=== PATIENT | male | born 1990 | race Caucasian/White ===

== ENCOUNTER 2018-07-03 13:40 | Emergency (ER) | payer MEDICAID, OTHER ==
[2018-07-03 13:51] VITALS: BP 119/76; PULSE 72; RESP 18; TEMP 98.4; O2SAT 97
--- NOTE | 2018-07-03 14:22 | C.PDOC ---
History Of Present Illness 28 y/o male presents to the ED for evaluation of back s/p accidental slip and fall. Patient states he fell and landed on his mid lower back. No LOC or head trauma. Now complaining of pain to that area. Denies hx of chronic back pain. Denies any new numbness or weakness. Time Seen by Provider: 07/03/18 14:11 Chief Complaint (Nursing): Back Pain History Per: Patient History/Exam Limitations: no limitations Onset/Duration Of Symptoms: Hrs Current Symptoms Are (Timing): Still Present Previous Symptoms: None Past Medical History Reviewed: Historical Data, Nursing Documentation, Vital Signs Vital Signs: Last Vital Signs Temp 98.4 F 07/03/18 13:48 Pulse 72 07/03/18 13:48 Resp 18 07/03/18 13:48 BP 119/76 07/03/18 13:48 Pulse Ox 97 07/03/18 13:48 - Medical History PMH: No Chronic Diseases Surgical History: No Surg Hx Family History: States: Unknown Family Hx - Social History Hx Tobacco Use: Yes Hx Alcohol Use: No Hx Substance Use: No - Immunization History Hx Tetanus Toxoid Vaccination: Yes Hx Influenza Vaccination: No Hx Pneumococcal Vaccination: No Review Of Systems Except As Marked, All Systems Reviewed And Found Negative. Constitutional: Negative for: Fever Cardiovascular: Negative for: Chest Pain Respiratory: Negative for: Shortness of Breath Gastrointestinal: Negative for: Nausea, Vomiting Musculoskeletal: Positive for: Back Pain Skin: Negative for: Lesions Neurological: Negative for: Weakness, Numbness Physical Exam - Physical Exam Appears: Well, Non-toxic, No Acute Distress Skin: Normal Color, Warm, Dry Head: Atraumatic, Normacephalic Eye(s): bilateral: Normal Inspection, PERRL, EOMI Oral Mucosa: Moist Neck: Normal ROM Chest: Symmetrical Cardiovascular: Rhythm Regular, No Murmur Respiratory: Normal Breath Sounds, No Accessory Muscle Use, Other (NARD) Gastrointestinal/Abdominal: Soft, No Tenderness, No Distention Back: No Vertebral Tenderness, Paraspinal Tenderness (right paravertebral tenderness around T12 and L1), Other (Skin intact) Extremity: Bilateral: Atraumatic, Normal Color And Temperature Neurological/Psych: Oriented x3, Normal Speech, Other (Neurologically intact,no focal deficits) Gait: Steady ED Course And Treatment O2 Sat by Pulse Oximetry: 97 (RA) Pulse Ox Interpretation: Normal - Other Rad LS SPINE X-Ray: Interpreted by Me ( scoliosis) Medical Decision Making Medical Decision Making: Impression: Back pain s/p fall Plan: --LS spine x-ray --60 mg IM Toradol --1 tab PO Percocet X-ray shows no acute findings. Patient will be discharged home, given RX for muscle relaxant. Disposition Counseled Patient/Family Regarding: Studies Performed, Diagnosis, Need For Followup, Rx Given - Disposition Referrals: [facility] [Outside] [facility] [Outside] Disposition: HOME/ ROUTINE Disposition Time: 14:48 Condition: IMPROVED Prescriptions: diaZEpam [Valium] 10 mg PO TID #9 tab Ibuprofen [Motrin] 600 mg PO Q6 #30 tab Instructions: Low Back Pain (DC) Forms: [employer] (Samoan) - Clinical Impression Clinical Impression: Lumbar sprain, Contusion of back - Scribe Statement The provider has reviewed the documentation as recorded by the Andrés Irwin Provider Attestation: All medical record entries made by the Andrés were at my direction and personally dictated by me. I have reviewed the chart and agree that the record accurately reflects my personal performance of the history, physical exam, medical decision making, and the department course for this patient. I have also personally directed, reviewed, and agree with the discharge instructions and disposition.
[2018-07-03] MEDS ORDERED: Oxycodone/Acetaminophen 5/325 mg Tab PO STA (14:31)
[2018-07-03] MEDS ORDERED: Oxycodone/Acetaminophen 5/325 mg Tab ONE (14:39)
--- NOTE | 2018-07-03 15:00 | RAD ---
Date of service: 07/03/2018 PROCEDURE: Radiographs of the Lumbar Spine. HISTORY: trauma COMPARISON: Lumbar spine radiographs performed 09/12/13 FINDINGS: BONES: Curvature of the lumbar spine convex to the left. Alignment appears otherwise satisfactory. No listhesis. No acute displaced fracture identified. DISC SPACES: Unremarkable. OTHER FINDINGS: None. IMPRESSION: No acute displaced fracture or subluxation. Scoliosis.
== END 2018-07-03 14:51 | disposition home or self-care (01) ==
LOC: C.ER 13:40
DX: S33.5XXA Sprain of ligaments of lumbar spine, initial encounter (principal); S30.0XXA Contusion of lower back and pelvis, initial encounter; W01.0XXA Fall on same level from slipping, tripping and stumbling without subsequent striking against object, initial encounter
CPT/HCPCS: 72100; 96372; 99283; J1885